=== PATIENT | male | born 1965 | race Caucasian/White ===

== ENCOUNTER 2019-10-18 12:51 | Emergency (ER) | payer OTHER ==
[~2019-10-18] VITALS: Ht 172.7 cm; Wt 97.5 kg
[~2019-10-18 12:51] MED LIST: BACTRIM PED152.22 ML PO; CIPRO500 MG PO; CLARITIN10 MG PO; MEDROL DOSEPAK4 MG PO
[2019-10-18] MEDS ORDERED: PROVENTIL HFA6.7 GM INH (16:26)
[2019-10-18] MEDS ORDERED: DOXYCYCLINE100 M3 PO (16:26)
[2019-10-18] MEDS ORDERED: TESSALON PERLE100 M1 PO (16:26)
== END 2019-10-18 16:36 | disposition home or self-care (01) ==
LOC: ED 12:51
DX: J18.1 Lobar pneumonia, unspecified organism (principal)

== ENCOUNTER → 2020-01-15 | Outpatient (CLI) | payer OTHER ==
[~2020-01-15] MED LIST changes: +DOXYCYCLINE100 M3 PO; +PROVENTIL HFA6.7 GM INH; +TESSALON PERLE100 M1 PO
[2020-01-15 12:45] LABS: CHOLESTEROL 161 mg/dL (<200); HDL CHOLESTEROL 34 mg/dl (40-60); LDL CHOLESTEROL 106 mg/dL (9-159); SGOT/AST 15 IU/L (3-35); SGPT/ALT 29 U/L (12-78); TRIGLYCERIDES 103 mg/dl (<150); VLDL CHOLESTEROL 21 mg/dL (6-40)
== END | disposition home or self-care (01) ==
LOC: LAB 11:08
PROVIDERS: Internal Medicine Cardiovascular Disease
DX: E78.5 Hyperlipidemia, unspecified (principal)